=== PATIENT | male | born 1950 | race Caucasian/White ===

== ENCOUNTER 2018-02-05 03:47 | Observation (INO) | payer MEDICARE ==
[~2018-02-05] VITALS: Ht 170.2 cm; Wt 54.5 kg
[~2018-02-05 03:47] MED LIST: ENOX40SY7 SQ; HYDR25TA4 PO; LOSA100T28 PO; METO25TA6 PO; NITR0.4T48 SL; OXYC-580 PO; WARF10TA50 PO; WARF3TAB PO
[2018-02-05 04:14] LABS: BASOPHILS % (AUTO) 0.4 % (0-1); EOSINOPHILS # (AUTO) 0.2 X10'3 (0-0.9); EOSINOPHILS % (AUTO) 3.3 % (0-6); HEMATOCRIT 40.1 % (42.0-52.0); HEMOGLOBIN 13.4 g/dl (14.0-17.9); LYMPHOCYTES # (AUTO) 2.3 X10'3 (1.1-4.8); LYMPHOCYTES % (AUTO) 33.9 % (21-51); MEAN CORPUSCULAR HEMOGLOBIN 32.3 PG (27.0-31.0); MEAN CORPUSCULAR HGB CONC 33.3 % (33.0-36.5); MEAN CORPUSCULAR VOLUME 96.8 FL (78-98); MEAN PLATELET VOLUME 10.2 FL (7.4-10.4); MONOCYTES # (AUTO) 0.7 X10'3 (0-0.9); MONOCYTES % (AUTO) 10.5 % (2-12); NEUTROPHILS # (AUTO) 3.6 X10'3 (1.8-7.7); NEUTROPHILS % (AUTO) 51.9 % (42-75); PLATELET COUNT 138 X10'3 (140-440); RED BLOOD COUNT 4.14 X10'6 (4.70-6.10); RED CELL DISTRIBUTION WIDTH 13.8 % (11.5-14.5); WHITE BLOOD COUNT 6.9 X10'3 (4.5-11.0)
[2018-02-05] MEDS ORDERED: RANO500T3 PO (04:20)
[2018-02-05] MEDS ORDERED: ATOR10TA87 PO (04:20)
[2018-02-05] MEDS ORDERED: DIFL500T PO (04:23)
[2018-02-05] MEDS ORDERED: BUPR1PAT TOP (04:23)
[2018-02-05] MEDS ORDERED: GABA-530 PO (04:23)
[2018-02-05 04:25] LABS: INR 1.1 INR; PARTIAL THROMBOPLASTIN TIME 27 SECONDS (22-32); PROTHROMBIN TIME 11.4 SECONDS (9.0-12.0)
[2018-02-05 04:32] LABS: ALANINE AMINOTRANSFERASE 12 U/L (12-78); ALBUMIN 2.9 G/DL (3.4-5.0); ALKALINE PHOSPHATASE 66 IU/L (46-116); ASPARTATE AMINO TRANSFERASE 12 U/L (10-37); BILIRUBIN,TOTAL 0.3 MG/DL (0.1-1.0); BLOOD UREA NITROGEN 21 MG/DL (7-18); BUN/CREATININE RATIO 24.4 (5.4-32.0); CALCIUM 8.7 MG/DL (8.5-10.1); CHLORIDE 108 MMOL/L (99-107); CREATININE 0.86 MG/DL (0.60-1.10); GLUCOSE 94 MG/DL (70-104); POTASSIUM 4.4 MMOL/L (3.5-5.1); TOTAL CARBON DIOXIDE 29.9 MMOL/L (24-32); TOTAL PROTEIN 5.8 G/DL (6.4-8.2); eGFR 89 ML/MIN
[2018-02-05 04:34] LABS: MAGNESIUM 1.9 MG/DL (1.5-2.4)
[2018-02-05] MEDS ORDERED: aspirin 81mg tab.chew PO STA (04:53)
[2018-02-05] MEDS ORDERED: enoxaparin 100mg/ml syringe SUBCUT ONE (04:55)
[2018-02-05] MEDS ORDERED: magnesium hydroxide 30ml (MOM) UD suspension PO PRN (05:55)
[2018-02-05] MEDS ORDERED: oxyCODONE IR 5mg (immed. release) tablet PO PRN (05:55)
[2018-02-05] MEDS ORDERED: ondansetron/PF 4mg/2ml inj IV PRN (05:55)
[2018-02-05] MEDS ORDERED: nitroGLYCERIN 0.4mg SUBLingual tab SL PRN (05:55)
[2018-02-05] MEDS ORDERED: mag hydrox/Alum hydrox/simeth 30ml oral suspension PO PRN (05:55)
[2018-02-05] MEDS ORDERED: non-formulary drug (Buprenorphine (Butrans) 1 PATCH) TOP SCH (05:55)
[2018-02-05 06:43] LABS: ANION GAP 5 (8-16); SODIUM 143 MMOL/L (135-145)
[2018-02-05] MEDS ORDERED: atorvastatin 10mg tablet PO SCH ×2 (08:00→21:00)
[2018-02-05] MEDS ORDERED: ranolazine 500mg SR tablet (Q12H) PO SCH (08:00)
[2018-02-05] MEDS ORDERED: [UNRECOGNIZED DRUG - OTHER] PO SCH (08:00)
[2018-02-05] MEDS ORDERED: BUPRENORPHINE 10 MCG/HR ID SCH (08:00)
[2018-02-05] MEDS ORDERED: BUPR1PAT20 TD (08:33)
[2018-02-05 08:53] VITALS: BP 123/79
[2018-02-05] MEDS ORDERED: carVEDilol 3.125mg tablet PO SCH (09:50)
[2018-02-05] MEDS ORDERED: CARV3.12 PO (10:45)
[2018-02-05] MEDS ORDERED: gabapentin 100mg capsule PO SCH (21:00)
[2018-02-07] MEDS ORDERED: BUPRENORPHINE 10 MCG/HR ID SCH (08:00)
== END 2018-02-05 12:38 | disposition home or self-care (01) ==
LOC: ER 03:48 → ED HOLD 05:51 → PCU 3S 07:10
PROVIDERS: ADMIT Internal Medicine; ATTEND Family Medicine
DX: R07.89 Other chest pain (principal); E78.5 Hyperlipidemia, unspecified; G62.9 Polyneuropathy, unspecified; B19.20 Unspecified viral hepatitis C without hepatic coma; I25.10 Atherosclerotic heart disease of native coronary artery without angina pectoris; E85.9 Amyloidosis, unspecified; Z95.5 Presence of coronary angioplasty implant and graft
CPT/HCPCS: 36415; 71045; 80053; 83735; 83880; 84484; 85025; 85610; 85730; 93005; 96372; 99285; G0378; J1650

== ENCOUNTER 2018-07-30 13:39 | Emergency (ER) | payer MEDICARE ==
[~2018-07-30] VITALS: Ht 170.2 cm; Wt 50.9 kg
[~2018-07-30 13:39] MED LIST changes: +ATOR10TA87 PO; +BUPR1PAT20 TD; +CARV3.12 PO; +DIFL500T PO; -ENOX40SY7 SQ; +GABA-530 PO; -HYDR25TA4 PO; -LOSA100T28 PO; -METO25TA6 PO; +RANO500T3 PO; -WARF10TA50 PO; -WARF3TAB PO
[2018-07-30 13:41] VITALS: BP 138/88
[2018-07-30] MEDS ORDERED: CEPH-571 PO (16:24)
[2018-07-30] MEDS ORDERED: SULF1TAB49 PO (16:24)
[2018-07-30] MEDS ORDERED: mupirocin 2% ointment 22GM TP STA (16:25)
== END 2018-07-30 16:52 | disposition home or self-care (01) ==
LOC: ER 13:39
DX: S60.921A Unspecified superficial injury of right hand, initial encounter (principal); Z88.6 Allergy status to analgesic agent; Z88.5 Allergy status to narcotic agent; Z79.2 Long term (current) use of antibiotics; Z79.899 Other long term (current) drug therapy; X58.XXXA Exposure to other specified factors, initial encounter; Y93.89 Activity, other specified; Y92.89 Other specified places as the place of occurrence of the external cause; Y99.8 Other external cause status
CPT/HCPCS: 99283

== ENCOUNTER 2020-07-28 11:52 | Emergency (ER) | payer MEDICARE, BC ==
[~2020-07-28] VITALS: Ht 170.2 cm; Wt 50.9 kg
[~2020-07-28 11:52] MED LIST changes: +CEPH-571 PO; +OXYC-481 PO; -OXYC-580 PO
[2020-07-28 12:36] LABS: BASOPHILS % (AUTO) 0.4 % (0-1); EOSINOPHILS # (AUTO) 0.1 X10'3 (0-0.9); EOSINOPHILS % (AUTO) 0.9 % (0-6); HEMOGLOBIN 12.1 g/dl (14.0-17.9); LYMPHOCYTES # (AUTO) 1.2 X10'3 (1.1-4.8); LYMPHOCYTES % (AUTO) 18.6 % (21-51); MEAN CORPUSCULAR HEMOGLOBIN 32.2 PG (27.0-31.0); MEAN CORPUSCULAR HGB CONC 33.6 g/dL (33.0-36.5); MEAN CORPUSCULAR VOLUME 95.9 FL (78-98); MEAN PLATELET VOLUME 9.5 FL (7.4-10.4); MONOCYTES # (AUTO) 0.4 X10'3 (0-0.9); MONOCYTES % (AUTO) 6.5 % (2-12); NEUTROPHILS # (AUTO) 4.9 X10'3 (1.8-7.7); NEUTROPHILS % (AUTO) 73.6 % (42-75); PLATELET COUNT 146 X10'3 (140-440); RED BLOOD COUNT 3.75 X10'6 (4.70-6.10); RED CELL DISTRIBUTION WIDTH 13.1 % (11.5-14.5); WHITE BLOOD COUNT 6.7 X10'3 (4.5-11.0)
[2020-07-28 12:51] LABS: ALANINE AMINOTRANSFERASE 20 U/L (12-78); ALBUMIN 3.5 G/DL (3.4-5.0); ALKALINE PHOSPHATASE 86 IU/L (46-116); ANION GAP 4 (8-16); ASPARTATE AMINO TRANSFERASE 26 U/L (10-37); BILIRUBIN,TOTAL 0.4 MG/DL (0.1-1.0); BLOOD UREA NITROGEN 22 MG/DL (7-18); BUN/CREATININE RATIO 25.3 (5.4-32.0); CALCIUM 9.3 MG/DL (8.5-10.1); CHLORIDE 105 MMOL/L (99-107); CREATININE 0.87 MG/DL (0.60-1.10); GLUCOSE 114 MG/DL (70-104); POTASSIUM 4.7 MMOL/L (3.5-5.1); SODIUM 140 MMOL/L (135-145); TOTAL CARBON DIOXIDE 31.1 MMOL/L (24-32); eGFR 87 ML/MIN
[2020-07-28] MEDS ORDERED: normal saline 1000ML IV soln IVB ONE (13:05)
[2020-07-28 14:38] VITALS: BP 140/58
== END 2020-07-28 21:37 | disposition home or self-care (01) ==
LOC: ER 11:52
DX: R42 Dizziness and giddiness (principal); R53.1 Weakness; E86.0 Dehydration; Z88.5 Allergy status to narcotic agent; Z79.899 Other long term (current) drug therapy; Z87.19 Personal history of other diseases of the digestive system
CPT/HCPCS: 36415; 71045; 80053; 84484; 85025; 93005; 96360; 99285; J7030

== ENCOUNTER 2021-07-20 11:03 | Day surgery (SDC) | payer MEDICARE, BC ==
[2021-07-18 13:42] LABS: EOSINOPHILS # (AUTO) 0.3 X10'3 (0-0.9); LYMPHOCYTES # (AUTO) 1.5 X10'3 (1.1-4.8); MONOCYTES # (AUTO) 0.7 X10'3 (0-0.9); NEUTROPHILS # (AUTO) 4.3 X10'3 (1.8-7.7); PRE OP HEMOGLOBIN 12.2 g/dL (14.0-17.9)
[2021-07-18 13:44] LABS: BASOPHILS % (AUTO) 0.3 % (0-1); EOSINOPHILS % (AUTO) 3.8 % (0-6); LYMPHOCYTES % (AUTO) 21.6 % (21-51); MEAN CORPUSCULAR HEMOGLOBIN 31.4 PG (27.0-31.0); MEAN PLATELET VOLUME 8.6 FL (7.4-10.4); MONOCYTES % (AUTO) 10.6 % (2-12); NEUTROPHILS % (AUTO) 63.7 % (42-75); PRE OP HEMATOCRIT 36.8 % (42.0-52.0); PRE OP PLATELET COUNT 231 X10'3 (140-440); RED BLOOD COUNT 3.88 X10'6 (4.70-6.10); RED CELL DISTRIBUTION WIDTH 13.9 % (11.5-14.5)
[2021-07-18 13:56] LABS: ALBUMIN 3.3 G/DL (3.4-5.0); ALBUMIN/GLOBULIN RATIO 0.8 (1.1-1.5); ALKALINE PHOSPHATASE 80 IU/L (46-116); BLOOD UREA NITROGEN 15 MG/DL (7-18); BUN/CREATININE RATIO 20.5 (5.4-32.0); CHLORIDE 103 MMOL/L (99-107); CREATININE 0.73 MG/DL (0.60-1.10); PRE OP ALT 18 U/L (30-65); PRE OP ANION GAP 7 (8-16); PRE OP AST 23 U/L (10-37); PRE OP BILIRUB, TOTAL 0.5 MG/DL (0.0-1.0); PRE OP GLUCOSE 89 MG/DL (70-104); PRE OP POTASSIUM 4.4 MMOL/L (3.4-5.1); PRE OP SODIUM 140 MMOL/L (135-145); TOTAL CARBON DIOXIDE 29.7 MMOL/L (24-32); TOTAL PROTEIN 7.2 G/DL (6.4-8.2); eGFR > 90 ML/MIN
[2021-07-20] VITALS (8 sets, daily range): BP systolic 101–180; BP diastolic 51–90
[~2021-07-20] VITALS: Ht 167.6 cm; Wt 55.5 kg
[~2021-07-20 11:03] MED LIST changes: -ATOR10TA87 PO; -BUPR1PAT20 TD; -CARV3.12 PO; +CARV3.122 PO; -CEPH-571 PO; -DIFL500T PO; +DOCUMENT DATE & TIME OF BETA-BLOCKER PO ONE; +METH-806 PO; -NITR0.4T48 SL; +ONDA8TAB13 PO; +[UNRECOGNIZED DRUG - CODE] IV; +famotidine 20mg tablet PO ONE; +ringers solution, lacted 1,000 ML IV SCH; +vancomycin inj 1,000 MG in normal saline 250ml IV soln 250 ML IV ONE
[2021-07-20] MEDS ORDERED: cefazolin/dext.iso 2gm/50ml IV ONE (12:19)
[2021-07-20 12:37] LABS: CLARITY,URINE CLEAR (Clear); COLOR,URINE YELLOW (Yellow); GLUCOSE, URINE NEGATIVE (Neg); KETONES,URINE NEGATIVE (Neg); LEUKOCYTE ESTERASE ,URINE NEGATIVE (Neg); NITRITES, URINE NEGATIVE (Neg); OCCULT BLOOD,URINE NEGATIVE (Neg); PH,URINE 6.5 (4.8-8.0); PROTEIN,URINE NEGATIVE (Neg)
[2021-07-20 12:41] LABS: UA COLLECTION TYPE VOIDED
[2021-07-20] MEDS ORDERED: FLU VACC QS2021-22(6MOS UP)/PF 60 MCG/0.5 ML SYRINGE IM ONE (13:40)
[2021-07-20] MEDS ORDERED: bacitracin 15gm ointment TP ONE (15:51)
[2021-07-20] MEDS ORDERED: BUPIVAcaine 0.5% inj/PF 30 ML ONE ×2 (15:51→16:13)
[2021-07-20] MEDS ORDERED: midazolam 1 mg/ML 2ml injection ONE (16:03)
[2021-07-20] MEDS ORDERED: fentaNYL/PF 50MCG/1 ML 2ML syringe ONE ×3 (16:03→19:46)
[2021-07-20] MEDS ORDERED: propofol inj 20 ML IV ONE (16:05)
[2021-07-20] MEDS ORDERED: LIDOcaine 2% (20mg/ml) 5ml vial ONE (16:05)
[2021-07-20] MEDS ORDERED: ondansetron/PF 4mg/2ml inj ONE (16:06)
[2021-07-20] MEDS ORDERED: dexamethasone sod phosphate 4mg/ml inj. ONE (16:06)
[2021-07-20] MEDS ORDERED: ROPIVAcaine 0.5% (5mg/ml) 30ml vial ONE ×2 (16:09→16:10)
[2021-07-20] MEDS ORDERED: BUPIVACAINE liposomal/PF 13.3 MG/ML vial IM ONE (16:13)
[2021-07-20] MEDS ORDERED: sevoflurane 250ml liquid IH ONE (16:19)
[2021-07-20] MEDS ORDERED: morphine 4 MG/ML inj SYRINge IV PRN (17:55)
[2021-07-20] MEDS ORDERED: morphine 2 MG/ML inj. syringe IV PRN (17:55)
[2021-07-20] MEDS ORDERED: ROPIVAcaine 0.2% (10 MG/5 ML) BOLUS INJECTION POPLITEAL PRN (17:55)
[2021-07-20] MEDS ORDERED: labetalol 20mg/4ml (5mg/ml) syringe IV PRN (17:55)
[2021-07-20] MEDS ORDERED: fentaNYL/PF 50MCG/1 ML 2ML syringe IV PRN ×2 (17:55)
[2021-07-20] MEDS ORDERED: hydrALAZINE 20mg/ml inj. IV PRN (17:55)
[2021-07-20] MEDS ORDERED: ROPIVAcaine 0.2%/PF PUMP/bolus 545 ML POPLITEAL SCH (17:55)
[2021-07-20] MEDS ORDERED: ondansetron/PF 4mg/2ml inj IV PRN (17:55)
[2021-07-20] MEDS ORDERED: ringers solution, lacted 1,000 ML IV SCH (17:55)
[2021-07-20] MEDS ORDERED: hydrALAZINE 20mg/ml inj. IV ONE (19:24)
[2021-07-20] MEDS ORDERED: morphine 10mg/ml inj. ONE (19:48)
--- NOTE | 2021-07-20 19:58 | NUR ---
Received from OR via , accompanied by Anesthesiologist DR LARIOS and report given by Anesthesiolgist. AWAKENS TO VOICE. VITALS STABLE.DRESSING DI. LISSA PAIN. TOES COOL AND PINK.
--- NOTE | 2021-07-20 21:08 | NUR ---
AWAKE AND ORIENTED. VITALS STABLE. DRESSING DI. LISSA PAIN. HOME WITH HIS AT THIS TIME.
== END 2021-07-20 21:08 | disposition home or self-care (01) ==
LOC: PAS 11:03
PROVIDERS: ATTEND Podiatrist Foot & Ankle Surgery
DX: S82.871A Displaced pilon fracture of right tibia, initial encounter for closed fracture (principal); S82.831A Other fracture of upper and lower end of right fibula, initial encounter for closed fracture; I10 Essential (primary) hypertension; G89.18 Other acute postprocedural pain; Z87.891 Personal history of nicotine dependence; Z95.5 Presence of coronary angioplasty implant and graft; Z20.822 Contact with and (suspected) exposure to COVID-19; Z86.19 Personal history of other infectious and parasitic diseases; Z79.899 Other long term (current) drug therapy; Z98.890 Other specified postprocedural states; Z96.641 Presence of right artificial hip joint; Z89.429 Acquired absence of other toe(s), unspecified side; Z88.5 Allergy status to narcotic agent; Z88.8 Allergy status to other drugs, medicaments and biological substances; X58.XXXA Exposure to other specified factors, initial encounter; Y93.89 Activity, other specified; Y92.89 Other specified places as the place of occurrence of the external cause; Y99.8 Other external cause status
CPT/HCPCS: 27828; 36415; 64446; 64447; 73590; 76000; 76937; 76942; 80053; 81003; 82948; 85025; 87635; A6223; C1713; C9290; C9803; J0360; J0690; J1100; J2250; J2274; J2405; J2704; J2795; J3010; J3370; J3490; J7030; J7050; J7120; S0020; U0003; U0005; Z7506; Z7508; Z7512; A4215; A4618; A6253; A6449; A7000

== ENCOUNTER 2022-12-17 10:57 | Day surgery (SDC) | payer MEDICARE, BC ==
[~2022-12-17] VITALS: Ht 170.2 cm; Wt 49.8 kg
[2022-12-17] VITALS (10 sets, daily range): BP systolic 104–161; BP diastolic 53–81
[~2022-12-17 10:57] MED LIST changes: -DOCUMENT DATE & TIME OF BETA-BLOCKER PO ONE; -famotidine 20mg tablet PO ONE; -ringers solution, lacted 1,000 ML IV SCH; -vancomycin inj 1,000 MG in normal saline 250ml IV soln 250 ML IV ONE
[2022-12-17] MEDS ORDERED: fentaNYL/PF 50MCG/1 ML 2ML syringe IV ONE (11:25)
[2022-12-17] MEDS ORDERED: normal saline 1000ml 1,000 ML IV SCH (11:25)
[2022-12-17] MEDS ORDERED: MIDAZolam 1mg/ml 10ml vial IV ONE (11:25)
[2022-12-17] MEDS ORDERED: ROSU10TA28 PO (11:36)
[2022-12-17] MEDS ORDERED: METH-603 PO (11:36)
[2022-12-17] MEDS ORDERED: DIPH-522 PO (11:36)
== END 2022-12-17 14:10 | disposition home or self-care (01) ==
LOC: SSTAY O 10:57 → EDSTATUS 15:00
PROVIDERS: ATTEND Student in an Organized Health Care Education/Training Program
DX: I08.0 Rheumatic disorders of both mitral and aortic valves (principal); I10 Essential (primary) hypertension; I25.119 Atherosclerotic heart disease of native coronary artery with unspecified angina pectoris; I42.9 Cardiomyopathy, unspecified; B19.20 Unspecified viral hepatitis C without hepatic coma; I27.20 Pulmonary hypertension, unspecified; E85.9 Amyloidosis, unspecified; Z86.718 Personal history of other venous thrombosis and embolism; Z95.5 Presence of coronary angioplasty implant and graft; Z88.5 Allergy status to narcotic agent; Z79.899 Other long term (current) drug therapy
CPT/HCPCS: 93312; J2250; J3010; J7030; A4620